=== PATIENT | female | born 1935 | race Caucasian/White ===

== ENCOUNTER → 2016-10-26 | Outpatient (CLI) | payer MEDICARE ==
[2014-06-02 14:30] VITALS: BP 135/80
[~2016-10-26] MED LIST: ALPR0.25 PO; CRESTOR10 MG PO; HYDR-2679 PO; HYDR-2762 PO; LISI2.5T PO; MONT10TA9 PO
--- NOTE | 2016-10-26 13:33 | RAD ---
DATE: 10/26/2016 EXAM: DIGITAL DIAGNOSTIC LT HISTORY: Suspicious screening study COMPARISON: 10/15/2016 This study was interpreted with the benefit of Computerized Aided Detection (CAD). FINDINGS: Spot compression CC and rolled cc views as well as a straight mediolateral view were obtained and correlated with the screening images. The density seen laterally in the left breast on one view of the screening study cannot be redemonstrated on today's views. It appears to have represented a summation shadow. No suspicious nodule or mass is currently seen. IMPRESSION: There is no mammographic evidence of malignancy in the left breast. Routine yearly mammographic follow-up is suggested. BI-RADS CATEGORY: 2 BENIGN FINDING(S) RECOMMENDED FOLLOW-UP: 12M 12 MONTH FOLLOW-UP PQRS compliance statement: Patient information was entered into a reminder system with a target due date for the next mammogram. Mammography is a sensitive method for finding small breast cancers, but it does not detect them all and is not a substitute for careful clinical examination. A negative mammogram does not negate a clinically suspicious finding and should not result in delay in biopsying a clinically suspicious abnormality. "Our facility is accredited by the [employer] Mammography Program."
== END | disposition home or self-care (01) ==
LOC: MAMMO 12:47
PROVIDERS: ATTEND Internal Medicine
DX: R92.8 Other abnormal and inconclusive findings on diagnostic imaging of breast (principal)
CPT/HCPCS: G0206; 77065

== ENCOUNTER 2016-12-01 07:50 | Outpatient (CLI) | payer MEDICARE ==
[~2016-12-01] VITALS: Ht 160 cm; Wt 110.2 kg
[2016-12-01] VITALS (15 sets, daily range): BP systolic 112–161; BP diastolic 61–83
[2016-12-01] MEDS ORDERED: ASPI81TA2 PO (08:13)
[2016-12-01] MEDS ORDERED: BUPR150T6 PO (08:13)
[2016-12-01 08:19] LABS: HEMATOCRIT 41.8 % (36.0-47.0); HEMOGLOBIN 13.8 g/dL (12.0-15.5); RED BLOOD COUNT 4.64 x10^6/uL (3.50-5.40); RED CELL DISTRIBUTION WIDTH 13.2 % (11.5-14.5); WHITE BLOOD COUNT 6.4 x10^3/uL (4.0-11.0)
[2016-12-01 08:22] LABS: CALCIUM 9.7 mg/dL (8.5-10.1); CREATININE 1.2 mg/dL (0.6-1.0); GFR 43.4; POTASSIUM 4.4 mmol/L (3.5-5.1)
[2016-12-01 08:32] LABS: INR 1.1 (0.8-1.1); PROTHROMBIN TIME PATIENT 13.4 SEC (11.7-14.0)
[2016-12-01] MEDS ORDERED: LIDOCAINE 2% 20 ML VIAL. ONE (08:50)
--- NOTE | 2016-12-01 08:54 | PDOC ---
MODERATE SEDATION ASSESSMENT RISKS/ALTERNATIVES Risks/Alternatives Risks and alternatives of this type of sedation and procedure discussed with: RISK/ALTERNATIVES: Patient H & P ON CHART H & P H & P on chart and reviewed for co-morbid conditions and appropriate labs. H&P ON CHART: Yes STATUS PREG STATUS ASSESSED: N/A MEDS/ALLERGIES REVIEWED Meds/Allergies Reviewed Medications and Allergies including time and route of recently administered narcotics and sedatives. MEDS/ALLERGIES REVIEWED: Yes ASA RATING ASA RATING: II AIRWAY ASSESSMENT Airway Assessment Airway patency, oral function limitations, presence of caps, crowns, dentures, partials, and ability to extend neck assessed. AIRWAY ASSESSMENT: Yes MALLAMPATI SCORE MALLAMPATI SCORE: II PRE-SEDATION ASSESSMENT PRE-SEDATION ASSESSMENT: Yes GARRETT MARIO MD Dec 01, 2016 08:54
[2016-12-01] MEDS ORDERED: IODIXANOL 320 MG/ML 100 ML VIAL. ONE ×2 (09:08→09:32)
[2016-12-01] MEDS ORDERED: NITROGLYCERIN 200 MCG/2 ML SYRINGE FOR CATH/VASC LAB. ONE (09:10)
[2016-12-01] MEDS ORDERED: MIDAZOLAM HCL/PF 5 MG/5 ML VIAL ONE (09:10)
[2016-12-01] MEDS ORDERED: HEPARIN for IV BOLUS 10,000 UNIT/10 ML VIAL. ONE (09:10)
[2016-12-01] MEDS ORDERED: VERAPAMIL 5 MG/2 ML VIAL. ONE (09:10)
[2016-12-01] MEDS ORDERED: FENTANYL PF 100 MCG/2 ML VIAL. ONE (09:10)
[2016-12-01] MEDS ORDERED: LIDOCAINE 2% 20 ML VIAL. IJ ONE (09:30)
[2016-12-01] MEDS ORDERED: HEPARIN for IV BOLUS 10,000 UNIT/10 ML VIAL. IART ONE (09:30)
[2016-12-01] MEDS ORDERED: VERAPAMIL 5 MG/2 ML VIAL. IART ONE (09:30)
[2016-12-01] MEDS ORDERED: MIDAZOLAM HCL/PF 5 MG/5 ML VIAL IV ONE (09:30)
[2016-12-01] MEDS ORDERED: IODIXANOL 320 MG/ML 100 ML VIAL. IART ONE (09:30)
[2016-12-01] MEDS ORDERED: NITROGLYCERIN 200 MCG/2 ML SYRINGE FOR CATH/VASC LAB. IART ONE (09:30)
[2016-12-01] MEDS ORDERED: FENTANYL PF 100 MCG/2 ML VIAL. IV ONE (09:30)
--- NOTE | 2016-12-01 10:29 | CARD ---
APPROVED REPORT Procedure(s) performed: Left heart catheterization, selective coronary angiography, selective angiogr aphy of the bypass grafts via the left transradial approach INDICATION The indication(s) include : unstable angina . PROCEDURE NARRATIVE After explaining the risks, benefits and alternative options, informed consent was obtained from rex ent. Patient was brought to the cardiac [employer] and her left wrist was prepped and draped in the usu al fashion after confirming a positive modified Luis Carlos's test. Arterial access was obtained in the lef t radial artery and 6 Austrian sheath was inserted. 6 Austrian JR4 catheter was used to perform selective angiography of the left internal mammary artery graft to the left anterior descending artery, [place] right coronary artery, and also the saphenous vein graft to the right coronary artery. 6 Austrian IM c atheter was used to perform selective angiography of the saphenous vein graft to the ramus intermediu s artery. 6 Austrian JL4 catheter was used to perform selective angiography of the left coronary artery . Finally, 6 Austrian pigtail catheter was used to perform left ventriculography. Patient tolerated the procedure well. Hemostasis was achieved using TR band. There were no immediate complications. The fo llowing findings were noted. FINDINGS 1. Hemodynamics: Left ventricular end-diastolic pressure 15 mmHg. No pullback gradient across the a ortic valve. 2. Left ventriculography: Normal left ventricle systolic function with ejection fraction estimated at 55-60%. No significant mitral regurgitation seen. 3. Coronary and bypass graft angiography: a. The left main coronary artery arose from the left sinus of Valsalva, gave rise to the left anteri or descending, ramus intermedius and left circumflex arteries and did not show any significant stenos is. b. The left anterior descending artery showed 100% chronic occlusion in the proximal segment. c. The ramus intermedius artery showed 60-70% stenosis in the proximal segment. d. The left circumflex artery did not show any significant stenosis. e. The right coronary artery was a dominant vessel arising from the right sinus of Valsalva that chaparro wed 60% long stenosis in the proximal to midsegment. f. The left internal mammary artery graft to the left anterior descending artery was widely patent. Distal to the anastomosis, the left anterior descending artery did not show any significant stenosis. g. The saphenous vein graft to the right coronary artery was widely patent. h. The saphenous vein graft to the ramus intermedius artery was widely patent. Conclusion 1. Coronary artery disease s/p coronary artery bypass surgery with patent left internal mammary marissa ry graft to the left anterior descending artery, patent saphenous vein graft to the ramus intermedius artery, patent saphenous vein graft to the right coronary artery and no significant stenosis involvi ng left circumflex artery that was not grafted. 2. Normal left ventricle systolic function with ejection fraction estimated at 55-60%. Recommendations Medical Therapy
[2016-12-01] MEDS ORDERED: IV 1/2 NORMAL SALINE 1,000 ML IV SCH (10:30)
== END 2016-12-01 12:50 | disposition home or self-care (01) ==
LOC: CCL 07:50
PROVIDERS: ATTEND Internal Medicine Cardiovascular Disease
DX: I25.110 Atherosclerotic heart disease of native coronary artery with unstable angina pectoris (principal); I25.82 Chronic total occlusion of coronary artery
CPT/HCPCS: 36415; 80048; 85027; 85610; 93459; C1769; C1892; J2250; J3010; J3490

== ENCOUNTER 2017-12-23 11:34 | Emergency (ER) | payer MEDICARE ==
[2017-12-23] MEDS: IV NORMAL SALINE 1000ML BAG 1,000 ML IV (12:04)
[2017-12-23 12:13] LABS: ADD MAN DIFF? NO
[2017-12-23 12:15] LABS: BASO % 1 % (0-3); EOS # 0.3 x10^3/uL (0.0-0.7); EOS % 4 % (0-3); HEMATOCRIT 39.7 % (36.0-47.0); HEMOGLOBIN 13.6 g/dL (12.0-15.5); LYMPH # 2.5 x10^3/uL (1.0-4.8); LYMPH % 39 % (24-48); MEAN CORPUSCULAR HEMOGLOBIN 31 pg (25-35); MEAN CORPUSCULAR HGB CONC 34 g/dL (31-37); MEAN CORPUSCULAR VOLUME 91 fL (79-100); MONO # 0.5 x10^3/uL (0.0-1.1); MONO % 8 % (0-9); NEUT % 48 % (31-73); PLATELET COUNT 110 x10^3/uL (140-400); RED BLOOD COUNT 4.37 x10^6/uL (3.50-5.40); RED CELL DISTRIBUTION WIDTH 12.9 % (11.5-14.5); WHITE BLOOD COUNT 6.4 x10^3/uL (4.0-11.0)
[2017-12-23] MEDS ORDERED: 0.9 % SODIUM CHLORIDE 10 ML DISP.SYRIN. IV (12:15)
[2017-12-23] MEDS: ASPIRIN CHEWABLE 81 MG TABLET. PO (12:15)
[2017-12-23 12:28] LABS: D-DIMER 0.48 ug/mlFEU (0.00-0.50)
[2017-12-23 12:29] LABS: ANION GAP 7 (6-14); BLOOD UREA NITROGEN 18 mg/dL (7-20); CARBON DIOXIDE 25 mmol/L (21-32); CHLORIDE 104 mmol/L (98-107); CREATININE 1.4 mg/dL (0.6-1.0); GFR 36.2; GLUCOSE 127 mg/dL (70-99); POTASSIUM 3.9 mmol/L (3.5-5.1); SODIUM 136 mmol/L (136-145)
[2017-12-23 12:36] LABS: ALBUMIN 3.1 g/dL (3.4-5.0); ALK PHOS 135 U/L (46-116); ALT (SGPT) 78 U/L (14-59); AST (SGOT) 58 U/L (15-37); DIRECT BILIRUBIN 0.5 mg/dL (0.0-0.2); LIPASE 115 U/L (73-393); TOTAL PROTEIN 7.2 g/dL (6.4-8.2)
[2017-12-23 12:37] LABS: TROPONINI < 0.017 ng/mL (0.000-0.055)
[2017-12-23 12:44] LABS: THYROID STIM HORMONE (TSH) 3.092 uIU/mL (0.358-3.74)
[2017-12-23 12:45] LABS: CKMB INDEX 1.1 % (0-4); CKMB MASS 1.1 ng/mL (0.0-3.6); CREATINE KINASE 102 U/L (26-192)
[2017-12-23 12:45] LABS: NT-PRO BNP 314 pg/mL (0-449)
== END 2017-12-23 14:37 | disposition home or self-care (01) ==
LOC: ER 11:34
DX: I25.10 Atherosclerotic heart disease of native coronary artery without angina pectoris (principal); R07.89 Other chest pain; I10 Essential (primary) hypertension; E78.00 Pure hypercholesterolemia, unspecified; Z95.1 Presence of aortocoronary bypass graft
CPT/HCPCS: 36415; 71045; 80048; 80076; 82553; 83690; 83735; 83880; 84443; 84484; 85025; 85379; 93005; 96361; 96374; 99285-25; J2060; J7030

== ENCOUNTER → 2017-12-29 | Outpatient (CLI) | payer MEDICARE | END | disposition home or self-care (01) | LOC: ECHO 08:44 | DX: I25.10 Atherosclerotic heart disease of native coronary artery without angina pectoris (principal); I08.3 Combined rheumatic disorders of mitral, aortic and tricuspid valves | CPT/HCPCS: 93306 ==

== ENCOUNTER 2019-02-17 08:13 | Outpatient (CLI) | payer MEDICARE ==
[~2019-02-17] VITALS: Ht 157.5 cm; Wt 104.3 kg
[2019-02-17] VITALS (16 sets, daily range): BP systolic 140–176; BP diastolic 48–95
[~2019-02-17 08:13] MED LIST changes: +ASPI-630 PO; +BUPR150T6 PO; -HYDR-2762 PO; +HYDR-2765 PO; +TRAM1TAB4 PO
[2019-02-17 08:42] LABS: HEMATOCRIT 44.3 % (36.0-47.0); HEMOGLOBIN 14.9 g/dL (12.0-15.5); RED BLOOD COUNT 4.81 x10^6/uL (3.50-5.40); RED CELL DISTRIBUTION WIDTH 12.7 % (11.5-14.5); WHITE BLOOD COUNT 6.9 x10^3/uL (4.0-11.0)
[2019-02-17 09:06] LABS: CALCIUM 10.5 mg/dL (8.5-10.1); CREATININE 1.2 mg/dL (0.6-1.0); GFR 43.1; POTASSIUM 3.9 mmol/L (3.5-5.1)
[2019-02-17] MEDS ORDERED: DONE10TA7 PO (09:14)
[2019-02-17] MEDS ORDERED: PANT20TA2 PO (09:14)
[2019-02-17] MEDS ORDERED: MONT10TA6 PO (09:14)
[2019-02-17] MEDS ORDERED: CETI5TAB2 PO (09:14)
[2019-02-17] MEDS ORDERED: LIDOCAINE 1% PF 2 ML VIAL. ONE (09:29)
[2019-02-17] MEDS ORDERED: IODIXANOL 320 MG/ML 100 ML VIAL. ONE ×2 (09:29→10:16)
[2019-02-17] MEDS ORDERED: MIDAZOLAM HCL/PF 2 MG/2 ML VIAL. ONE (09:46)
[2019-02-17] MEDS ORDERED: VERAPAMIL 5 MG/2 ML VIAL. ONE (09:46)
[2019-02-17] MEDS ORDERED: HEPARIN for IV BOLUS 10,000 UNIT/10 ML VIAL. ONE (09:46)
[2019-02-17] MEDS ORDERED: fentaNYL PF VIAL 100 MCG/2 ML VIAL ONE (09:46)
[2019-02-17] MEDS ORDERED: NITROGLYCERIN 200 MCG/2 ML SYRINGE FOR CATH/VASC LAB. ONE (09:47)
--- NOTE | 2019-02-17 09:54 | CARD ---
MR#: [id number] Date of Study: 02/17/2019 Ordering Physician: GARRETT BOB, Referring Physician: GARRETT BOB Tech: Rose Almanzar RDCS APPROVED REPORT EXAM: Two-dimensional and M-mode echocardiogram with Doppler and color Doppler. Other Information Quality : AverageHR: 74bpm Rhythm : NSR INDICATION Chest Pain Surgery/Intervention CABD DIMENSIONS RVDd3.0 (2.9-3.5cm)Left Atrium(2D)3.6 (1.6-4.0cm) IVSd1.1 (0.7-1.1cm)Aortic Root(2D)3.0 (2.0-3.7cm) LVDd4.1 (3.9-5.9cm)LVOT Diameter1.9 (1.8-2.4cm) PWd0.9 (0.7-1.1cm)LVDs3.0 (2.5-4.0cm) FS (%) 27.1 %SV38.7 ml LVEF(%)53.3 (>50%) M-Mode DIMENSIONS Left Atrium(MM)3.94 (2.5-4.0cm)Aortic Root3.32 (2.2-3.7cm) Aortic Valve AoV Peak Laci.115.4cm/sAoV VTI24.9cm AO Peak GR.5.3mmHgLVOT Peak Laci.102.5cm/s AO Mean GR.4mmHgAVA (VMAX)2.43cm2 PK (VTI)2.40cm2 Mitral Valve MV E Vzwfwazy75.7cm/sMV DECEL HBWT782nj MV A Cajkcjte699.3cm/sE/A Ratio0.6 Tricuspid Valve TR P. Hwimbasm872ji/sRAP [id number] TR Peak Gr.55orVeODTS11xqXn LEFT VENTRICLE The left ventricle is normal size. There is normal left ventricular wall thickness. The left ventricu lar systolic function is normal. The Ejection Fraction is 55-60%. There is normal LV segmental wall m otion. Transmitral Doppler flow pattern is Grade I-abnormal relaxation pattern. RIGHT VENTRICLE The right ventricle is normal size. There is normal right ventricular wall thickness. The right ventr icular systolic function is normal. ATRIA The left atrium size is normal. The right atrium size is normal. The interatrial septum is intact wit h no evidence for an atrial septal defect or patent foramen ovale as noted on 2-D or Doppler imaging. AORTIC VALVE The aortic valve is mildly calcified. The aortic valve is trileaflet. Doppler and Color Flow revealed no significant aortic regurgitation. There is no significant aortic valvular stenosis. MITRAL VALVE The mitral valve is normal in structure and function. There is no evidence of mitral valve prolapse. There is no mitral valve stenosis. Doppler and Color-flow revealed trace mitral regurgitation. TRICUSPID VALVE The tricuspid valve is normal in structure and function. Doppler and Color Flow revealed trace tricus pid regurgitation. The PA pressure was estimated at 29 mmHg. There is no tricuspid valve prolapse or vegetation. There is no tricuspid valve stenosis. PULMONIC VALVE The pulmonic valve is not well visualized. GREAT VESSELS The aortic root is normal in size. The ascending aorta is normal in size. The IVC is normal in size a nd collapses >50% with inspiration. PERICARDIAL EFFUSION There is no evidence of significant pericardial effusion. Critical Notification Critical Value: No <Conclusion> The left ventricular systolic function is normal. The Ejection Fraction is 55-60%. There is normal LV segmental wall motion. Transmitral Doppler flow pattern is Grade I-abnormal relaxation pattern. Trace mitral regurgitation. Trace tricuspid regurgitation. The PA pressure was estimated at 29 mmHg. There is no evidence of significant pericardial effusion. Signed by : Garrett Bob, Electronically Approved : 02/17/2019 09:54:12
[2019-02-17] MEDS ORDERED: LIDOCAINE 1% PF 2 ML VIAL. INJ ONE (10:15)
[2019-02-17] MEDS ORDERED: NITROGLYCERIN 200 MCG/2 ML SYRINGE FOR CATH/VASC LAB. IART ONE (10:15)
[2019-02-17] MEDS ORDERED: fentaNYL PF VIAL 100 MCG/2 ML VIAL IV ONE (10:15)
[2019-02-17] MEDS ORDERED: HEPARIN for IV BOLUS 10,000 UNIT/10 ML VIAL. IART ONE (10:15)
[2019-02-17] MEDS ORDERED: IODIXANOL 320 MG/ML 100 ML VIAL. IART ONE (10:15)
[2019-02-17] MEDS ORDERED: VERAPAMIL 5 MG/2 ML VIAL. IART ONE (10:15)
[2019-02-17] MEDS ORDERED: MIDAZOLAM HCL/PF 2 MG/2 ML VIAL. IV ONE (10:15)
[2019-02-17] MEDS ORDERED: IV 1/2 NORMAL SALINE 1,000 ML IV SCH (10:39)
--- NOTE | 2019-02-17 10:40 | PDOC ---
MODERATE SEDATION ASSESSMENT RISKS/ALTERNATIVES Risks/Alternatives Risks and alternatives of this type of sedation and procedure discussed with: RISK/ALTERNATIVES: Patient H & P ON CHART H & P H & P on chart and reviewed for co-morbid conditions and appropriate labs. H&P ON CHART: Yes STATUS PREG STATUS ASSESSED: N/A MEDS/ALLERGIES REVIEWED Meds/Allergies Reviewed Medications and Allergies including time and route of recently administered narcotics and sedatives. MEDS/ALLERGIES REVIEWED: Yes ASA RATING ASA RATING: II AIRWAY ASSESSMENT Airway Assessment Airway patency, oral function limitations, presence of caps, crowns, dentures, partials, and ability to extend neck assessed. AIRWAY ASSESSMENT: Yes MALLAMPATI SCORE MALLAMPATI SCORE: II PRE-SEDATION ASSESSMENT PRE-SEDATION ASSESSMENT: Yes GARRETT MARIO MD Feb 17, 2019 10:40
[2019-02-17] MEDS ORDERED: NITROGLYCERIN SUBLINGUAL 0.4 MG BOTTLE OF 25. SL PRN (10:45)
--- NOTE | 2019-02-17 10:48 | CARD ---
MR#: [id number] Date of Study: 02/17/2019 Ordering Physician: GARRETT MARIO, Referring Physician: GARRETT MARIO Tech: KASSIDY HERNDON RTR APPROVED REPORT Technologist: KASSIDY HERNDON RTR Nurse: CHAIPTO ROBERTS RN Procedure(s) performed: Left heart catheterization, selective coronary angiography and selective montserrat ography of the bypass grafts via left transradial approach Moderate sedation: 35 mins Fluoro time: 16.0 mins Dose: 58 GYCM2 Contrast: 123 ml INDICATION The indication(s) include : unstable angina . CSHA Clinical Frailty Scale CS Clinical Frailty Scale: Managing Well Heart Failure Heart Failure: No PROCEDURE NARRATIVE After explaining the risks, benefits and alternative options, informed consent was obtained from rex ent. Patient was brought to the cardia Accounts Officer and her left wrist was prepped and draped in the usua l fashion after confirming a positive modified Luis Carlos's test. Arterial access was obtained in the left radial artery and a 6 [place] sheath was inserted. 6 [place] JR4 catheter was used to perform selectiv e angiography of the left internal mammary artery graft to the left anterior descending artery, right coronary artery and also the saphenous vein graft to the ramus intermedius artery. 6 [place] MPA cath eter was used to perform selective angiography of the saphenous vein graft to the right coronary marissa ry. 6 [place] JL4 catheter was used to perform selective angiography of the left coronary artery. Left ventriculography was not performed since patient had 2-D echo earlier in the day that showed normal LV systolic function. Patient tolerated the procedure well. Hemostasis was achieved using TR band. Th ere were no immediate complications. FINDINGS 1. The left main coronary artery arose from the left sinus of Valsalva, gave rise to the left anteri or descending, ramus intermedius and left circumflex arteries and did not show any significant stenos is. 2. The left anterior descending artery showed 100% chronic total occlusion in the proximal segment. 3. The ramus intermedius artery showed 70% stenosis in the proximal segment. 4. The left circumflex artery did not show any significant stenosis. 5. The right coronary artery was a dominant vessel arising from the right sinus of Valsalva that chaparro wed 60-70% stenosis in the proximal to midsegment. 6. The left internal mammary artery graft to the left anterior descending artery was widely patent. Distal to the anastomosis, the left anterior descending artery did not show any significant stenosis. 7. The saphenous vein graft to the right coronary artery was widely patent. 8. The saphenous vein graft to the ramus intermedius artery was widely patent. Conclusion Coronary artery disease s/p coronary artery bypass surgery with patent ADLER to LAD, patent SVG to janny us intermedius artery and patent SVG to RCA. The left circumflex artery that was not grafted did not show any significant stenosis. Recommendations Medical Therapy Signed by : Garrett Mario, Electronically Approved : 02/17/2019 10:47:39
--- NOTE | 2019-02-17 14:23 | NUR ---
Discharge Note: BIJAN ROSENBERG Discharge instructions and discharge home medications reviewed with Patient, son, and daughter in law; a copy given. All questions have been answered and understanding verbalized. The following instructions and handouts were given: Post cardiac cath radial site care, and post moderate sedation. Discontinued lines and drains: Left FA IV discontinued tip intact. Patient discharged to home with son and daughter in law via home.
== END 2019-02-17 14:32 | disposition home or self-care (01) ==
LOC: ECHO 08:13
PROVIDERS: ATTEND Internal Medicine Cardiovascular Disease
DX: I25.700 Atherosclerosis of coronary artery bypass graft(s), unspecified, with unstable angina pectoris (principal); I25.82 Chronic total occlusion of coronary artery; Z79.82 Long term (current) use of aspirin; F32.9 Major depressive disorder, single episode, unspecified; F41.9 Anxiety disorder, unspecified; Z90.49 Acquired absence of other specified parts of digestive tract; Z95.1 Presence of aortocoronary bypass graft
CPT/HCPCS: 36415; 80048; 85027; 85610; 93306; 93455; 99152; 99153; C1769; C1892; J1644; J2250; J3010; J3490; Q9967